=== PATIENT | male | born 1990 | race African-American/Black ===

== ENCOUNTER 2017-02-01 11:52 | Emergency (ER) | payer BC ==
[2017-02-01] MEDS ORDERED: Ondansetron HCl/PF 4 MG/2 ML Vial ONE ×2 (12:16→13:49)
[2017-02-01 12:38] LABS: Hematocrit 54.7 % (42.0-52.0); Mean Platelet Volume 6.4 fL (7.4-10.4); Red Blood Cell (RBC) Count 5.98 mill/uL (4.70-6.10); White Blood Cell (WBC) Count 6.3 thou/uL (4.8-10.8)
[2017-02-01 12:53] LABS: ALT (SGPT) 19 U/L (8-55); AST (SGOT) 25 U/L (5-34); Alkaline Phosphatase 102 U/L (40-150); Anion Gap 14 mmol/L (10-20); BUN (Urea Nitrogen) 14 mg/dL (8.9-20.6); Bilirubin, Total 0.8 mg/dL (0.2-1.2); CK (CPK) 227 U/L (30-200); Calc. Creatinine Clearance 0 mL/min (70-130); Calcium 9.7 mg/dL (7.8-10.44); Carbon Dioxide 26 mmol/L (22-29); Chloride 105 mmol/L (98-107); Estimated GFR-MDRD Greater than 90; Globulin 4.1 g/dL (2.4-3.5); Lipase 49 U/L (8-78); Protein, Total 8.6 g/dL (6.0-8.3)
[2017-02-01 12:54] LABS: Neutrophil 50 % (42-75); Reactive Lymphocytes 7 % (0-10)
[2017-02-01 13:32] LABS: Bilirubin Negative (Negative); Blood, Urine Negative (Negative); Glucose, Urine (Dipstick) Negative (Negative); Ketone, Urine Negative (Negative); Nitrite Negative (Negative); Protein, Urine (Dipstick) Negative (Neg-Trace)
== END 2017-02-01 14:41 | disposition home or self-care (01) ==
LOC: ERS 11:52
DX: R11.2 Nausea with vomiting, unspecified (principal); J45.909 Unspecified asthma, uncomplicated; F41.9 Anxiety disorder, unspecified; F32.9 Major depressive disorder, single episode, unspecified; F17.210 Nicotine dependence, cigarettes, uncomplicated
CPT/HCPCS: 80053; 81003; 82550; 83690; 85025; 96361; 96374; 96376; J2405

== ENCOUNTER 2017-04-11 04:22 | Emergency (ER) | payer BC, OTHER ==
[2017-04-11] MEDS ORDERED: Ketorolac Tromethamine 60 MG/2 ML VIAL ONE (04:50)
--- NOTE | 2017-04-11 08:16 | RAD ---
PORTABLE CHEST ONE VIEW: 04/11/2017 at 4:36 a.m. HISTORY: Chest pain. FINDINGS: The heart size is normal. The lungs are expanded without focal areas of consolidation, pneumothorax, or pleural effusions. No acute gross abnormalities are seen. IMPRESSION: No acute process. POS: [facility]
== END 2017-04-11 05:25 ==
LOC: EEVIPCON 04:22 → ERS 04:22
DX: R07.9 Chest pain, unspecified (principal); R05 Cough; J45.909 Unspecified asthma, uncomplicated; F41.9 Anxiety disorder, unspecified; F32.9 Major depressive disorder, single episode, unspecified; F17.210 Nicotine dependence, cigarettes, uncomplicated
CPT/HCPCS: 71045; 93005; 96372; 99406; J1885

== ENCOUNTER 2024-01-06 20:54 | Emergency (ER) | payer BC, OTHER | END 2024-01-06 21:18 | LOC: EEVIPCON 20:54 → ERS 20:54 | DX: R56.9 Unspecified convulsions (principal) | CPT/HCPCS: 99284 ==

== ENCOUNTER 2024-01-06 23:22 | Emergency (ER) | payer BC, OTHER ==
[2024-01-07 00:13] LABS: #Basophils 0.05 10x3/uL (0.0-0.2); %Basophils 0.6 % (0.0-1.0); %Eosinophils 0.5 % (0.0-10.0); %Lymphocytes 25.4 % (21.0-51.0); %Monocytes 9.2 % (0.0-10.0); %Neutrophils 64.1 % (42.0-75.0); Hematocrit 43.9 % (42.0-52.0); Hemoglobin 14.9 g/dL (14.0-18.0); Mean Corpuscular HGB CONC 33.9 g/dL (32.0-36.0); Mean Corpuscular Hemoglobin 28.8 pg (27.0-31.0); Mean Corpuscular Volume 84.9 fL (78.0-98.0); Mean Platelet Volume 8.6 fL (7.4-10.4); Platelet Count 264 10x3/uL (130-400); RBC Distribution Width 12.6 % (11.5-14.5); Red Blood Cell (RBC) Count 5.17 mill/uL (4.70-6.10)
[2024-01-07 00:45] LABS: Bacteria/HPF None Seen HPF (None Seen); Bilirubin Negative (Negative); Blood, Urine Negative (Negative); CAUTI Indications for Culture Alt mental st,lethar; Clarity Clear (Clear); Glucose, Urine (Dipstick) Normal (Negative); Ketone, Urine 10 mg/dL (Negative); Leukocyte Negative Leu/uL (Negative); Nitrite Negative (Negative); Protein, Urine (Dipstick) 20 mg/dL (Neg-Trace); RBC/HPF 0-3 HPF (0-3); Specific Gravity, Urine 1.025 (1.002-1.036); Squamous Epithelial 0-3 HPF (0-3); Urobilinogen Normal mg/dL (Less than 2); WBC/HPF 0-3 HPF (0-3); pH, Urine 5.5 (5.0-9.0)
[2024-01-07 00:47] LABS: Urine Culture Reflex No No
[2024-01-07 01:02] LABS: Amphetamine Not Detected (NotDetected); Barbiturates Screen Not Detected (NotDetected); Benzodiazepine Screen Not Detected (NotDetected); Cocaine Metabolite Screen Not Detected (NotDetected); Methadone Not Detected (NotDetected); Methamphetamine Not Detected (NotDetected); Opiate Screen Not Detected (NotDetected); Oxycodone Screen Not Detected (NotDetected); Phencyclidine (PCP) Not Detected (NotDetected); THC/Cannabinoid Screen Not Detected (NotDetected); Tricyclic Screen Not Detected (NotDetected)
[2024-01-07 01:30] LABS: ALT (SGPT) 28 U/L (8-55); AST (SGOT) 22 U/L (5-34); Alkaline Phosphatase 72 U/L (40-110); Anion Gap 14 mmol/L (10-20); BUN (Urea Nitrogen) 13 mg/dL (8.9-20.6); Bilirubin, Total 0.5 mg/dL (0.2-1.2); Calc. Creatinine Clearance 0 mL/min (70-130); Calcium 8.7 mg/dL (7.8-10.44); Carbon Dioxide 22 mmol/L (22-29); Chloride 104 mmol/L (98-107); Estimated GFR 106; Glucose 91 mg/dL (70-105); Potassium 3.9 mmol/L (3.5-5.1); Sodium 136 mmol/L (136-145)
[2024-01-07 01:32] LABS: Acetaminophen Less than 10 mcg/mL (Less than 10); Alcohol Less than 10.0 mg/dL (Less than 10); Salicylate Less than 8.0 mg/dL (Less than 8.0)
== END 2024-01-07 01:45 ==
LOC: EEVIPCON 23:22 → ERS 23:22
DX: S06.9X9A Unspecified intracranial injury with loss of consciousness of unspecified duration, initial encounter (principal); R41.82 Altered mental status, unspecified; H55.00 Unspecified nystagmus; W01.198A Fall on same level from slipping, tripping and stumbling with subsequent striking against other object, initial encounter; Z75.3 Unavailability and inaccessibility of health-care facilities
CPT/HCPCS: 70450; 72125; 80053; 80306; 80307; 81001; 85025; 93005

== ENCOUNTER 2024-01-11 17:04 | Emergency (ER) | payer BC, OTHER ==
[2024-01-11 17:55] LABS: #Basophils 0.04 10x3/uL (0.0-0.2); %Basophils 0.5 % (0.0-1.0); %Eosinophils 2.9 % (0.0-10.0); %Lymphocytes 45.6 % (21.0-51.0); %Monocytes 14.1 % (0.0-10.0); %Neutrophils 36.6 % (42.0-75.0); Hematocrit 43.8 % (42.0-52.0); Hemoglobin 14.1 g/dL (14.0-18.0); Mean Corpuscular HGB CONC 32.2 g/dL (32.0-36.0); Mean Corpuscular Hemoglobin 28.7 pg (27.0-31.0); Mean Platelet Volume 8.4 fL (7.4-10.4); Platelet Count 213 10x3/uL (130-400); RBC Distribution Width 12.9 % (11.5-14.5); Red Blood Cell (RBC) Count 4.92 mill/uL (4.70-6.10)
[2024-01-11] MEDS ORDERED: HYDROcodone/Acetaminophen 10/325 mg Tablet ONE (18:17)
[2024-01-11] MEDS ORDERED: Morphine 4 MG/ML VIAL ONE (18:22)
[2024-01-11] MEDS ORDERED: Ondansetron PF 4 MG/2 ML Vial ONE (18:22)
[2024-01-11] MEDS ORDERED: Clindamycin/D5W 600 mg/50 ml Premix Bag ONE (18:23)
[2024-01-11 18:29] LABS: Acetaminophen Less than 10 mcg/mL (Less than 10); Alcohol Less than 10.0 mg/dL (Less than 10); Salicylate Less than 8.0 mg/dL (Less than 8.0)
[2024-01-11 18:42] LABS: ALT (SGPT) 28 U/L (8-55); AST (SGOT) 24 U/L (5-34); Albumin 3.6 g/dL (3.5-5.0); Alkaline Phosphatase 82 U/L (40-110); Anion Gap 15 mmol/L (10-20); BUN (Urea Nitrogen) 8 mg/dL (8.9-20.6); Bilirubin, Total 0.4 mg/dL (0.2-1.2); Calc. Creatinine Clearance 0 mL/min (70-130); Calcium 8.3 mg/dL (7.8-10.44); Carbon Dioxide 18 mmol/L (22-29); Chloride 111 mmol/L (98-107); Estimated GFR 103; Globulin 3.1 g/dL (2.4-3.5); Glucose 68 mg/dL (70-105); Potassium 3.5 mmol/L (3.5-5.1); Protein, Total 6.7 g/dL (6.0-8.3); Sodium 140 mmol/L (136-145)
[2024-01-11 19:55] LABS: PTT 25.1 sec (22.9-36.1); Prothrombin Time 13.6 sec (12.0-14.7)
[2024-01-11] MEDS ORDERED: fentaNYL 50 mcg/mL 1 mL Vial ONE (20:53)
== END 2024-01-11 21:55 | disposition short-term general hospital (02) ==
LOC: ERS 17:04 → EEVIPCON 17:04 → ERS 21:55
DX: S02.69XA Fracture of mandible of other specified site, initial encounter for closed fracture (principal); Y04.0XXA Assault by unarmed brawl or fight, initial encounter; Y93.89 Activity, other specified; Y92.149 Unspecified place in prison as the place of occurrence of the external cause
CPT/HCPCS: 36415; 70450; 70486; 71045; 72125; 80053; 80307; 83690; 85025; 85610; 85730; 96374; 96375; J2272; J2405; J3010; J3490

== ENCOUNTER 2024-01-17 12:24 | Emergency (ER) | payer BC, OTHER ==
[2024-01-17 13:41] LABS: #Basophils 0.05 10x3/uL (0.0-0.2); %Basophils 0.8 % (0.0-1.0); %Eosinophils 1.7 % (0.0-10.0); %Lymphocytes 38.4 % (21.0-51.0); %Monocytes 14.2 % (0.0-10.0); %Neutrophils 44.6 % (42.0-75.0); Hematocrit 41.4 % (42.0-52.0); Mean Corpuscular HGB CONC 33.8 g/dL (32.0-36.0); Mean Corpuscular Hemoglobin 28.8 pg (27.0-31.0); Mean Corpuscular Volume 85.2 fL (78.0-98.0); Mean Platelet Volume 8.1 fL (7.4-10.4); Platelet Count 267 10x3/uL (130-400); RBC Distribution Width 12.4 % (11.5-14.5); Red Blood Cell (RBC) Count 4.86 mill/uL (4.70-6.10)
[2024-01-17 14:04] LABS: ALT (SGPT) 15 U/L (8-55); AST (SGOT) 16 U/L (5-34); Albumin 3.5 g/dL (3.5-5.0); Alkaline Phosphatase 74 U/L (40-110); Anion Gap 16 mmol/L (10-20); BUN (Urea Nitrogen) 8 mg/dL (8.9-20.6); Bilirubin, Total 0.6 mg/dL (0.2-1.2); Calc. Creatinine Clearance 0 mL/min (70-130); Calcium 9.2 mg/dL (7.8-10.44); Carbon Dioxide 21 mmol/L (22-29); Chloride 105 mmol/L (98-107); Estimated GFR 118; Glucose 76 mg/dL (70-105); Protein, Total 7.5 g/dL (6.0-8.3); Sodium 138 mmol/L (136-145)
[2024-01-17] MEDS ORDERED: Acetaminophen 500 MG TAB ONE (14:24)
[2024-01-17] MEDS ORDERED: Acetaminophen 650 MG/20.3 ML UDCUP ONE (14:30)
== END 2024-01-17 14:52 ==
LOC: ERS 12:24 → EEVIPCON 12:24 → ERS 14:52
DX: R51.9 Headache, unspecified (principal); R56.9 Unspecified convulsions; W19.XXXA Unspecified fall, initial encounter; Z53.21 Procedure and treatment not carried out due to patient leaving prior to being seen by health care provider
CPT/HCPCS: 36415; 70450; 70486; 80053; 85025